=== PATIENT | female | born 1990 | race Two or more races ===

== ENCOUNTER 2024-08-07 00:35 | Observation (INO) | payer MEDICAID, SELFPAY ==
[2024-08-07] VITALS (15 sets, daily range): BP systolic 136–164; BP diastolic 88–126; PULSE 79–101; RESP 14–100; TEMP 36.4–37.4; O2SAT 95–100; BMI 24.5
--- NOTE | 2024-08-07 00:59 | XR_ITS ---
Examination: CT brain head without contrast. 2-D sagittal coronal reconstructions Date and time of exam:August 07, 2024 0231 hrs. Indications: Multiple falls today with injury to the head, head pain CTDI: vol (mGy):46 DLP: (mGycm):866 Technique: Multiple CT axial sections of the brain have been obtained, 5 mm slice thickness. Contrast has not been administered. 2-D sagittal, coronal reconstructions have been obtained Low dose protocols were performed. One or more of the following dose reduction techniques were used; automated exposure control, adjustment of the mA and/or KV according to patient size, use of iterative reconstruction technique. Findings: No significant ventricular enlargement. Intra-axial or extra-axial hemorrhage density is not seen. No mass effect or midline shift Basal cisterns are not remarkable. Fourth ventricle is midline. Cranial vault intact. Impression: Negative for acute hemorrhage, mass effect or midline shift Severe chronic pansinusitis
--- NOTE | 2024-08-07 01:00 | XR_ITS ---
Examination: CT chest, without intravenous contrast. CT abdomen, without intravenous contrast. CT pelvis, without intravenous contrast. 2-D sagittal and coronal reconstructions. 3-D reconstructions. Date and time of exam:August 07, 2024 at 0233 hrs. Indications: Injury to the chest and abdomen this week, multiple bruises CTDI vol (mgy) 5.1 DLP (MGycm)339 Technique: Multiple CT images, 3.0 mm slice thickness, obtained chest, abdomen, pelvis, with the high-resolution 64 slice scanner.. Sagittal and coronal 2-D reconstructions are obtained. 3-D reconstructions Low dose protocols were performed. One or more of the following dose reduction techniques were used; automated exposure control, adjustment of the mA and/or KV according to patient size, use of iterative reconstruction technique. Findings: Thoracic aorta pulmonary arteries intact No hemopericardium Minute left apical pneumothorax The manubrium the body the sternum thoracic vertebral bodies and ribs appear intact No liver splenic or renal laceration, no perinephric hematoma Contracted gallbladder Aorta normal size No free blood in the abdomen Negative for pneumoperitoneum No pelvic mass Urinary bladder intact Lumbar vertebral bodies sacral segments and bones of the pelvis and hips appear intact Impression: Tiny left apical pneumothorax less than 3% Thoracic aorta pulmonary arteries intact No pulmonary contusion or hemothorax No abdominal parenchymal laceration Abdominal aorta intact No free blood in the abdomen
--- NOTE | 2024-08-07 01:00 | XR_ITS ---
Examination: CT cervical spine without contrast 2-D sagittal reconstructions 2-D coronal reconstructions 3-D reconstructions. Exam date and time:August 06, 2024 0231 hrs. Indications: Multiple falls today with injury to the neck, neck pain CTDI:vol (mGy) 7.36 DLP: (mGycm) 163 Technique: Multiple 2 mm axial sections of the cervical spine have been obtained. The coronal and sagittal reconstructions have been obtained. 3-D reconstructions have been obtained. Low dose protocols were performed. One or more of the following dose reduction techniques were used; automated exposure control, adjustment of the mA and/or KV according to patient size, use of iterative reconstruction technique. Findings: Axial sections demonstrate intact base of the skull. C1 exhibit satisfactory relationship to the odontoid. No acute cervical vertebral body fracture seen. Alignment posterior spinous processes satisfactory. Impression: No acute cervical fracture.
[2024-08-07 01:26] LABS: Basophils # (Auto) 0.1 Thou/mm3 (0.0-0.2); Basophils % (Auto) 0 % (0-2.5); Eosinophils # (Auto) 0.2 Thou/mm3 (0.0-0.5); Eosinophils % (Auto) 1 % (0-10); Hematocrit 37.3 % (36.0-46.0); Hemoglobin 12.6 g/dL (12.0-16.0); Immature Granulocytes % (Auto) 1 % (0-0); Immature Granulocytes Auto 0.14 Thou/mm3 (0.00-0.00); Lymphocytes # (Auto) 1.9 Thou/mm3 (1.0-4.8); Lymphocytes % (Auto) 9 % (10-50); Mean Corpuscular HGB Conc 33.8 g/dl (31.0-37.0); Mean Corpuscular Hemoglobin 29.5 pg (25.0-35.0); Mean Corpuscular Volume 87 fL (80-100); Monocytes % (Auto) 5 % (0-12); Neutrophils # (Auto) 17.9 Thou/mm3 (1.8-7.7); Neutrophils % (Auto) 84 % (37-80); Nucleated Red Blood Cell % 0 /100 WBC (0); Platelet Count 322 Thou/mm3 (140-440); RDW Standard Deviation 43.2 fL (36.4-46.3); Red Blood Count 4.27 Miln/mm3 (4.00-5.20); White Blood Count 21.2 Thou/mm3 (3.6-11.0)
[2024-08-07 01:49] LABS: Alanine Aminotransferase 20 U/L (10-49); Albumin, Serum 4.1 gm/dL (3.5-5.0); Albumin/Globulin Ratio 1.8 (1.2-2.2); Alcohol, Blood Medical 270.4 mg/dL (0-10.0); Alkaline Phosphatase 78 U/L (46-116); Anion Gap 9 (7-16); Aspartate Amino Transferase 40 U/L (0-34); BUN/Creatinine Ratio 12 Ratio (12-20); Bilirubin,Total 0.3 mg/dL (0.3-1.2); Blood Urea Nitrogen 11 mg/dL (9-23); Calcium 8.7 mg/dL (8.3-10.6); Calcium (Corrected) 8.7 mg/dL (8.5-10.1); Carbon Dioxide 25.5 mMol/L (20.0-31.0); Chloride 110 mMol/L (98-107); Creatinine (Component) 0.9 mg/dL (0.6-1.3); Estimated Creatinine Clearance 73.4 mL/min (>60); Globulin 2.3 gm/dL (2.3-3.5); Glucose 135 mg/dL (74-106); Magnesium 2.2 mg/dL (1.6-2.6); Osmolality,Calculated 288 (275-295); Potassium 3.8 mMol/L (3.4-5.1); Sodium 144 mMol/L (136-145); Total Protein 6.4 gm/dL (5.7-8.2); eGFR > 60 See Note
[2024-08-07 01:57] LABS: Troponin I 0.077 ng/mL (0.0-0.045)
--- NOTE | 2024-08-07 02:01 | EKG_ITS ---
[facility] Test Date: 2024-08-07 Pat Name: RISHABH RIVAS Department: Room: - Gender: Female Card Room Manager: : 1990 Requested By: Yousuf Rodgers Order Number: [id number] Reading MD: Yousuf Rodgers Measurements Intervals [place] Rate: 108 P: 59 WI: 151 QRS: 16 QRSD: 74 T: 58 QT: 320 QTc: 429 Interpretive Statements SINUS TACHYCARDIA ABNORMAL RHYTHM ECG No previous ECG available for comparison /store/S0/[id number]/ecg/[id number].pdf
[2024-08-07 02:06] LABS: HCG,Qualitative Serum Negative
[2024-08-07] MEDS: ONDANSETRON INJ 2 MG/ML INJ 2 ML 4 MG IV (02:14)
[2024-08-07] MEDS: SODIUM CHLORIDE 0.9% 1000 ML 1,000 ML 999 ML IV (02:15)
--- NOTE | 2024-08-07 02:26 | PC.NURSE ---
To ct-scan via gurney.
[2024-08-07 03:01] LABS: Lactate (Lactic Acid) 1.1 mMol/L (0.4-2.0)
--- NOTE | 2024-08-07 03:06 | PD.EDFALL ---
ED Fall Injury RME/HPI General Chief Complaint: Fall Stated Complaint: SOB Time Seen by Provider: 08/07/24 01:59 Arrival date/time: 08/07/24 00:35 RME / HPI RME / HPI Narrative: This section includes all my notes and documentations, including HPI, PE, and ED course.? Yousuf Seals MD HPI: 34 year old female here to be evaluated after falling on her left side per EMS. Can't obtain any history from the patient due to intoxication. ROS: Can't obtain from the patient due to current clincal condition. Physical Exam: General:? Severely intoxicated. Eyes:? Conjunctivae and lids clear.? PERRL. EOMI. ENT:? No signs of head trauma. Neck:? Supple.? No obvious tenderness. Heart:? RRR.? Lungs:? No respiratory distress.? Moderately decreased air movement.? No significant rhonchi, wheezing, rales.?? Chest: Equivocal tenderness of the left ribcage. Abdomen:? Soft and nontender.?? Legs:? No clubbing, cyanosis, edema.? Skin:? Warm and dry.??Scattered ecchymoses, varying in size and shape. Neuro:? CN 2-12 grossly normal. No peripheral motor deficits. Musculoskeletal: All major bones and joints are tender with no limited ROM. I reviewed all diagnostic test results. At this point, diagnoses include: Left 1% Pneumothorax, Alcohol Intoxication, Elevated Troponin, Elevated D-Dimer, Tachycardia, Leukocytosis, UTI, and Ecchymoses. Treatment here included?Zofran and IVF. I discussed the case with our surgeon (Dr. Mendosa) and our hospitalist.? About the presentation and exam and diagnostics and treatments here.? And need of further care in the hospital.? Dr. Mendosa recommended discharging tomorrow AM if CXR stable. Hospitalist will accept the patient. Yousuf Seals MD Related Data Home Medications ?Medication ?Instructions ?Recorded ?Confirmed cetirizine 10 mg tablet 10 mg PO QDAY Allergies #0 tabs 09/28/13 10/09/21 yrgwkevv-bmu-Ck-FA 1 mg 1 tab PO DAILY #0 tabs 09/28/13 10/09/21 tablet budesonide-formoterol HFA 160 2 puff inhalation BID 05/23/21 10/09/21 mcg-4.5 mcg/actuation aerosol inhaler (Symbicort) fluticasone propionate 93 1 spray intranasal BID 09/17/21 10/09/21 mcg/actuation breath activated aerosol (Xhance) omega-3 fatty acids 500 mg PO QDAY 09/17/21 10/09/21 Previous Rx's ?Medication ?Instructions ?Recorded lidocaine 4 % topical patch 1 patch topical QDAY PRN pain 1 08/07/24 week #6 ea losartan 25 mg tablet 25 mg PO QDAY 30 days #30 tabs 08/07/24 acetaminophen 500 mg capsule 500 mg PO Q6H PRN pain #40 caps 08/10/24 Allergies Allergy/AdvReac Type Severity Reaction Status Date / Time aspirin Allergy Severe throat Verified 04/10/24 16:55 swells ibuprofen Allergy Severe throat Verified 04/10/24 16:55 swells Course Quality Measures none Orders Category Date Time Status Bedside COVID-19 Antigen Test NOW Care 08/07/24 02:00 Completed Bedside Influenza A&B Antigen Test NOW Care 08/07/24 02:00 Completed COVID-19 Screening Questionnaire NOW Care 08/07/24 05:02 Completed Decision to Admit X1 Care 08/07/24 05:02 Completed EKG (ED ONLY) *Do not use* NOW Care 08/07/24 02:01 Completed Saline [Insert IV] NOW Care 08/07/24 02:00 Completed Straight [In and Out Catheter] X1 Care 08/07/24 02:00 Completed Consult to General Surgery Stat Cons 08/07/24 05:[address] cervical spine wo con Stat Exams 08/07/24 01:[address] chest abdomen pelvis wo Stat Exams 08/07/24 01:[address] head/brain wo con Stat Exams 08/07/24 00:59 Completed EKG (ED Only) Stat Exams 08/07/24 02:01 Draft XR chest 1V portable Stat Exams 08/07/24 04:44 Completed Alcohol, Blood Medical Stat Lab 08/07/24 01:12 Completed BNP [B-Type Natriuretic Peptide] Stat Lab 08/07/24 02:46 Completed Blood Culture (Lab) Stat Lab 08/07/24 02:40 Completed CBC Stat Lab 02/16/25 01:12 Completed CMP [Comprehensive Metabolic Panel] Stat Lab 08/07/24 01:12 Completed CRP [C-Reactive Protein] Stat Lab 08/07/24 02:46 Completed D-Dimer Stat Lab 08/07/24 02:46 Completed Drug Screen,Urine Stat Lab 08/07/24 03:28 Completed ESR [Sed Rate (ESR)] Stat Lab 08/07/24 02:46 Completed HCG Qualitative,Urine Stat Lab 08/07/24 03:28 Completed HCG,Qualitative Serum Stat Lab 08/07/24 01:12 Completed Lactate (Lactic Acid) Stat Lab 08/07/24 02:46 Completed Magnesium Stat Lab 08/07/24 01:12 Completed Procalcitonin Stat Lab 08/07/24 02:46 Completed Troponin I Stat Lab 08/07/24 01:12 Completed UA, C/S IF [Urinalysis, C/S if Indicated] Stat Lab 08/07/24 03:28 Completed Urine Culture Stat Lab 08/07/24 03:28 Completed Ondansetron Inj [Zofran Inj] Med 08/07/24 02:00 Discontinued 4 mg IV X1 ONE Sodium Chloride 0.9% 1000 ml [Ns] 1,000 ml Med 08/07/24 02:00 Discontinued IV 999 mls/hr Vital Signs Vital signs: Vital Signs Temperature 98 F 08/07/24 01:25 Respiratory Rate 22 H 08/07/24 01:25 Blood Pressure 137/96 H 08/07/24 01:25 Pulse Oximetry (%) 97 08/07/24 01:25 Oxygen Delivery Method Room Air 08/07/24 01:25 Fall Patient data External records reviewed:: [facility] previous records Clinical information provided by:: EMS Social determinants that could affect healthcare access:: alcohol use Patient has the following chronic illnesses:: Alcohol use How is presenting disease/condition affected by chronic disease/condition?: exacerbated by Evaluation data The following diagnostics were reviewed and interpreted by me:: lab results, radiology exam(s) and EKG tracing(s) (My interpretation of the EKG is: Sinus rhythm (100 bpm) with nonspecific ST-T changes. Yousuf Seals MD) Lab and/or radiology exams considered but not ordered:: None Interpretation Summary: Left 1% Pneumothorax, Alcohol Intoxication, Elevated Troponin, Elevated D-Dimer, Tachycardia, Leukocytosis, UTI, and Ecchymoses. Medications / Prescriptions Medications or Prescriptions considered but not ordered:: None Medication administrations:: Medication Administration History Discontinued Medications Acetaminophen (Acetaminophen 325 Mg Tablet) 650 mg PO Q6H PRN PRN Reason: PAIN SCALE 1-3 (mild Stop: 09/06/24 05:19 Acetaminophen (Acetaminophen 325 Mg Tablet) 650 mg PO Q6H PRN PRN Reason: Fever >100.4 Stop: 09/06/24 05:19 Acetaminophen (Acetaminophen 500 Mg Tablet) 1,000 mg PO Q6H PRN PRN Reason: PAIN SCALE 1-3 (mild Stop: 09/06/24 05:19 Last Admin: 08/07/24 15:13 Dose: 1,000 mg Documented By: OPAL Albuterol/Ipratropium (Albuterol/Ipratropium (Duoneb) Rt Kristi 3 Ml Nebu) 3 ml INH Q6HRRT PRN PRN Reason: wheezing Stop: 09/06/24 06:59 Albuterol/Ipratropium (Albuterol/Ipratropium (Duoneb) Rt Kristi 3 Ml Nebu) 3 ml INH Q6HRRT KELSEY Stop: 09/06/24 06:59 Last Admin: 08/07/24 18:30 Dose: 3 ml Documented By: Admin: 08/07/24 12:55 Dose: 3 ml Documented By: Admin: 08/07/24 07:23 Dose: Not Given Documented By: PAULETTE Non-Admin Reason: Patient Refused Hydralazine HCl (Hydralazine Hcl 10 Mg Tablet) 10 mg PO X1 ONE Stop: 08/07/24 12:29 Last Admin: 08/07/24 12:34 Dose: 10 mg Documented By: POAL Hydralazine HCl (Hydralazine Inj 20 Mg/Ml Vial) 10 mg IV X1 ONE Stop: 08/07/24 14:59 Last Admin: 08/07/24 15:45 Dose: Not Given Documented By: OPAL Non-Admin Reason: Discontinued Sodium Chloride (Ns) 1,000 mls @ 999 mls/hr IV .Q1H1M ONE Stop: 08/07/24 03:00 Last Infusion: 08/07/24 03:16 Dose: Infused Documented By: Admin: 08/07/24 02:15 Dose: 999 mls/hr Documented By: PORFIRIO Labetalol HCl (Labetalol Inj 5 Mg/Ml Vial 20 Ml) 10 mg IVP X1 ONE Stop: 08/07/24 16:04 Last Admin: 08/07/24 16:13 Dose: 10 mg Documented By: OPAL Lidocaine (Lidocaine 5% 1 Patch) 1 patch TOP X1 ONE Stop: 08/07/24 15:08 Last Admin: 08/07/24 15:14 Dose: 1 patch Documented By: OPAL Losartan Potassium (Losartan Potassium 25 Mg Tablet) 25 mg PO X1 ONE Stop: 08/07/24 15:04 Last Admin: 08/07/24 15:14 Dose: 25 mg Documented By: OPAL Ondansetron HCl (Ondansetron Inj 2 Mg/Ml Inj 2 Ml) 4 mg IV X1 ONE; Protocol Stop: 08/07/24 02:01 Last Admin: 08/07/24 02:14 Dose: 4 mg Documented By: PORFIRIO Ondansetron HCl (Ondansetron Inj 2 Mg/Ml Inj 2 Ml) 4 mg IV Q6H PRN; Protocol PRN Reason: NAUSEA OR VOMITING Stop: 09/06/24 05:19 Pantoprazole Sodium (Pantoprazole Inj 40 Mg Vial) 40 mg IVP QDAY KELSEY Stop: 09/06/24 08:59 Last Admin: 08/07/24 09:37 Dose: 40 mg Documented By: OPAL IVF and Zofran Consultations Consultation(s) initiated? (list below): Yes Consultation #1 (Physician, Specialty, Details): I discussed the case with our surgeon (Dr. Mendosa) and our hospitalist.? About the presentation and exam and diagnostics and treatments here.? And need of further care in the hospital.? Dr. Mendosa recommended discharging tomorrow AM if CXR stable. Hospitalist will accept the patient. Diagnosis Fall Differential Diagnosis: syncope, dislocation of shoulder region, compression fracture, concussion with loss of consciousness and concussion without loss of consciousness Most likely diagnosis given after review of the tests above:: Left 1% Pneumothorax, Alcohol Intoxication, Elevated Troponin, Elevated D-Dimer, Tachycardia, Leukocytosis, UTI, and Ecchymoses. Admission Indicated Admission indicated?: indicated Explain why admission is indicated or not indicated:: Left 1% Pneumothorax, Alcohol Intoxication, Elevated Troponin, Elevated D-Dimer, Tachycardia, Leukocytosis, UTI, and Ecchymoses. Admission Request Was there a request for admission?: Yes Admission Attestation Admission request attestation: Discussed case with Hospitalist service regarding admission. Discussed patients ED course, exam findings, labs, and radiology results. The Hospitalist [agrees] to accept the patient for admission. Disposition Plan Disposition Plan: Admit Discharge Plan Plan Patient Disposition: Other Care w/in Hosp ([facility]) Patient condition on transfer: Stable Problem List Clinical Impression: Pneumothorax, left, Alcohol intoxication Patient/Caregiver Discharge Instructions Discharge Activity: resume usual activities
[2024-08-07 03:27] LABS: Sed Rate (ESR) 4 mm/hr (0-20)
[2024-08-07 03:31] LABS: B-Type Natriuretic Peptide 20 pg/mL (0-100); C-Reactive Protein < 0.4 mg/dL (0.0-0.9)
[2024-08-07 03:39] LABS: Procalcitonin 0.07 ng/ml (0.0-0.49)
[2024-08-07 03:47] LABS: Collection Type, Urine Clean Catch; RBC,Urine 0 /hpf (0-3)
[2024-08-07 04:11] LABS: Bilirubin,Urine Negative (Negative); Blood,Urine Negative (Negative); Clarity,Urine Turbid (Clear/Hazy); Color,Urine Lt-Yellow (Lt Yel-Yel); Glucose, Urine Negative (Negative); Hyaline Casts,Urine < 1 /hpf (0-1); Ketones,Urine Trace (Negative); Leukocyte Esterase,Urine Negative (Negative); Nitrite,Urine Positive (Negative); Protein,Urine Trace (Neg - Trace); Specific Gravity,Urine 1.017 (1.001-1.035); Squamous Epithelial Cell,Urine < 1 /hpf (0-5); Urobilinogen,Urine Negative mg/dL (0.0-1.0); WBC,Urine 6 /hpf (0-5)
[2024-08-07 04:13] LABS: Culture Indicated,Urine Yes
[2024-08-07 04:15] LABS: HCG Qualitative,Urine Negative
[2024-08-07 04:17] LABS: Amphetamine/Methamp Scrn,U Negative (Negative); Barbiturate Screen,Urine Negative (Negative); Benzodiazepines Screen,Urine Negative (Negative); Benzoylecgonine Screen, Ur Negative (Negative); Fentanyl Screen,Urine Negative (Negative); Opiate Screen,Urine Negative (Negative); THC Screen,Urine Positive (Negative)
--- NOTE | 2024-08-07 04:19 | PC.NURSE ---
Pt also c/o hitting head on floor small bump to back rt occipital and lt side of head noted. Denies LOC.
[2024-08-07 04:29] LABS: D-Dimer 987 ng/mL (<600)
--- NOTE | 2024-08-07 04:44 | XR_ITS ---
Examination: AP chest single view Technique one AP portable upright chest single view Exam date and time: August 07, 2024 0448 hrs. Indications: Shortness of breath today, multiple bruises this week post injury, tiny left apical pneumothorax on CT chest study Findings: No pneumothorax noted Normal heart size The lungs are clear The osseous structures are intact Impression: No pneumothorax depicted
--- NOTE | 2024-08-07 04:44 | PC.NURSE ---
pt moved to RM #5 via sheree.
--- NOTE | 2024-08-07 05:24 | ESHP_ITS ---
Documentation for date of: 08/07/24 [facility] History of Present Illness History of present illness: This is a 34-year-old female PMHx of well-controlled asthma, presenting after ground-level fall. History is somewhat vague, but states she was partying with her cousins at their house. Admitted to drinking lots of alcohol, unable to tell me how many drinks, states she does not remember. Apparently they were dancing and she slipped over the carpet, and landed on the floor facing down. States her chest took most of the impact but she also hit her forehead on the carpet. She remembers the entire event. Denies losing consciousness, feeling dizzy or lightheaded prior to falling. She was able to get up and walk after the incident but was having slightly difficulty breathing. Admits to drinking alcohol occasionally, usually on weekends. States he is usually not a heavy drinker. Denies previous alcohol withdrawal symptoms including seizures. Denies domestic abuse or violence. Denies tobacco or illicit drug use currently or in the past. Has mild headache related to hangover. Denies focal neurologic deficit, visual changes, auditory changes, hallucination, abnormal sensation in her extremities, muscle weakness, seizure-like activities, fever, chills, chest pain, shortness of breath, cough, palpitations, abdominal pain, N/V/D/C, dysuria, urinary frequency or urgency. ED COURSE: Afebrile, HR 83, BP 137/96, RR 22, satting 97% on room air. Troponin 0.077, AST 40, GLUCOSE 135, hCG negative, otherwise CMP WNL. WBC 22.1 with left shift, remainder CBC WNL. D-dimer 987. UA positive for nitrite and WBC 6. Alcohol 270, positive for marijuana. EKG shows sinus rhythm acute without ST changes. Prelim CT head, CT cervical spine, CT CAP were negative for ethmoid/maxillary sinusitis. CXR showed 5% pneumothorax. Dr. Mendosa was consulted by ED physician, and recommended admission for observation. PMHx: , asthma PSHx: Bilateral tubal ligation, septoplasty MEDS: SYMBICORT as needed. ALLERGIES: IBUPROFEN, ASPIRIN, both anaphylaxis. FHx: No relevant SH: , has 3 children, lives at home with . Occasional alcohol use. Denies drug or tobacco use. Exam Vital Signs Temp Resp BP Pulse Ox O2 Del Method 99.3 F 18 136/88 H 96 Room Air 08/07/24 03:35 08/07/24 03:35 08/07/24 03:35 08/07/24 03:35 08/07/24 03:35 Narrative Exam GENERAL * Normal-appearing adult female, no apparent distress. * CIWA 0 HEENT * NCAT.?PEREZ. Oral mucosa is moist. Patent Nares NECK * Supple, nontender, no thyromegaly, no meningismus, no JVD, no step offs CHEST * RRR, no m/g/r * CTAB, no w/r/r. Symmetrical chest rise. No intercostal subcostal retraction * Atraumatic, nontender, no crepitus, symmetrical expansion. ABDOMEN * Soft, flat, nontender. No guarding/rebound tenderness/masses. * Bowel sounds presents EXTREMITIES * Nontender, no cyanosis, no edema * No edema/cyanosis.? SKIN * Warm and dry, no jaundice/rashes. * Multiple diffuse bruises and lesions in all extremities. NEUROMUSCULAR * No lumbar or midline, no CVA, no paraspinal muscle spasm or tenderness. * Moves all 4 extremities well, with full ROM and good CSM. * REID x4, CN II-XII grossly intact. * No focal neurologic deficits. PSYCHIATRY * Normal mood and affect, cooperative, no SI or HI or hallucinations. Results: Labs 08/07/24 01:12 08/07/24 01:12 Labs: Short CBC 08/07/24 Range/Units 01:12 WBC 21.2 H (3.6-11.0) Thou/mm3 Hgb 12.6 (12.0-16.0) g/dL Hct 37.3 (36.0-46.0) % Plt Count 322 (140-440) Thou/mm3 BMP 08/07/24 01:12 Sodium 144 Potassium 3.8 Chloride 110 H Carbon Dioxide 25.5 BUN 11 Creatinine 0.9 Glucose 135 H Calcium 8.7 Cardiac Enzymes 08/07/24 Range/Units 01:12 Troponin I 0.077 H* (0.0-0.045) ng/mL Liver Function 08/07/24 Range/Units 01:12 Total Bilirubin 0.3 (0.3-1.2) mg/dL AST 40 H (0-34) U/L ALT 20 (10-49) U/L Alkaline Phosphatase 78 (46-116) U/L Albumin 4.1 (3.5-5.0) gm/dL Urine 08/07/24 Range/Units 03:28 Urine Color Lt-Yellow (Lt Yel-Yel) Urine Clarity Turbid A (Clear/Hazy) Urine pH 6.0 (5.0-7.0) Ur Specific [place] 1.017 (1.001-1.035) Urine Protein Trace (Neg - Trace) Urine Glucose (UA) Negative (Negative) Quality Measures Quality Measures VTE prophylaxis Medications Home Medications and Allergies Home Medications ?Medication ?Instructions ?Recorded ?Confirmed ?Type cetirizine 10 mg tablet 10 mg PO QDAY Allergies #0 t abs 09/28/13 10/09/21 History ptjkrvog-luw-Cb-FA 1 mg 1 tab PO DAILY #0 tab s 09/28/13 10/09/21 History tablet budesonide-formoterol HFA 160 2 puff inhalation BID 10/09/21 History mcg-4.5 mcg/actuation aerosol inhaler (Symbicort) fluticasone propionate 93 1 spray intranasal BID 09/1710/09/21 History mcg/actuation breath activated aerosol (Xhance) omega-3 fatty acids 500 mg PO QDAY 09/17/2109/21 History Allergies Allergy/AdvReac Type Severity Reaction Status Date / Time aspirin Allergy Severe throat Verified 04/10/24 16:55 swells ibuprofen Allergy Severe throat Verified 04/10/24 16:55 swells Visit Medications Discontinued Medications Sodium Chloride (Ns) 1,000 mls @ 999 mls/hr IV .Q1H1M ONE Stop: 08/07/24 03:00 Last Infusion: 08/07/24 03:15 Dose: 999 mls/hr Ondansetron HCl (Ondansetron Inj 2 Mg/Ml Inj 2 Ml) 4 mg IV X1 ONE; Protocol Stop: 08/07/24 02:01 Last Admin: 08/07/24 02:14 Dose: 4 mg Assessment & Plan Plan In summary: 34-year-old female, , with PMHx of asthma, admitted under observation for 5% pneumothorax in settings of alcohol intoxication and ground- level fall. Pneumothorax Alcohol intoxication Asthma, likely mild persistent Presenting with shortness of breath after GLF secondary to intoxication. Chest x-ray showed 5% pneumothorax. Prelim imaging including CT CAP, CT cervical spine, and head CT were negative for acute pathology. States she drinks alcohol occasionally, on weekends. Denies other substance use disorder. Tox screen positive for alcohol 270, and marijuana. Denies previous alcohol withdrawal symptoms, including seizures or hallucination. Exam clear and symmetrical bilaterally, no chest trauma. CIWA 0. Currently on room air. Satting 99%. Dr Mendosa recommended observation, discharge after 24 hours if PTX not expanding. ? Admit tele ? Continue 100% oxygen NC ? DuoNebs q.6h. ? Repeat chest x-ray ? Seizure precaution NSTEMI type II Elevated D-dimer Tachycardia Troponin 0.077, likely demand ischemia. EKG sinus tachycardia without acute ST changes. D-dimer 987, likely secondary to NSTEMI and trauma. Wells scores 1.5 and 0, indicate low risk for PE or DVT, respectively. Tachycardia likely reactive or 2/2 alcohol withdrawal. ? Trending troponin Leukocytosis WBC 21.2, clear reactive. Afebrile. ? Daily CBC Asymptomatic pyuria Positive for nitrite and WBC. She is asymptomatic. ? No indication for treatment. Skin lesions/abrasions On exam, she had multiple nontender, bruises and skin lesions involving all extremities. History slightly vague, states lesions are new, she was playing a game with her cousins, refused to corroborate additional detail. Denies domestic violence or abuse. ? No concern for skeletal fracture ? No need for intervention at this time Sinusitis States she has chronic sinusitis. S/p septoplasty. Prelim CT showed sinusitis of the mastoid and ethmoid sinuses. ? No indication for immediate treatment Health maintenance Diet: NPO GI prophylaxis: PROTONIX DVT prophylaxis: SCD Antibiotics: Not indicated CODE STATUS: Full code Disposition: Observation for pneumothorax. Patient case was discussed with attending, Blayne Fulton MD. Maribel Morales DO PGYI Attending Provider Attestation/Addendum 34-year-old female with asthma, perennial allergies was admitted following a fall. The patient said that she hit her chest on the left side and face on the carpet surface. She was in a alliance party and drinking alcoholic beverage. Per report. The patient sustained a pneumothorax. She has a reactive leukocytosis ER physician notified general surgeon Dr. Mendosa who wants the patient to be admitted for observation possible discharge if her repeat x-ray are stable. Patient was seen and evaluated in the ER. She has no hypoxia. Blood pressure is stable. She answers questions appropriately. She says she takes cetirizine and uses Symbicort at home
--- NOTE | 2024-08-07 05:37 | PC.NURSE ---
Dr. Fulton in room seeing pt.
[2024-08-07 07:38] LABS: Troponin I 0.071 ng/mL (0.0-0.045)
--- NOTE | 2024-08-07 08:18 | PC.NURSE ---
PT NOTED TO HAVE BRUISING ALL OVER BOTH ARMS. REPORTS 12/29 PIAN, MEDICATED WITH PRN (SEE MAR). WILL TRANSFER PT UP TO FLOOR ON TELE.
[2024-08-07] MEDS: PANTOPRAZOLE INJ 40 MG VIAL IVP (09:37)
--- NOTE | 2024-08-07 11:00 | XR_ITS ---
Examination: AP chest single view Technique: AP sitting portable chest single view Exam date and time: May 07, 2025 1059 hrs. Comparison August 07, 2024 0448 hrs. Indications: History tiny pneumothorax on CT chest study August 07, 2024 0233 hrs. Findings: Normal heart size no pneumothorax No pneumonia or pulmonary edema Impression: No pneumothorax
[2024-08-07] MEDS: hydrALAZINE HCL 10 MG TABLET PO (12:34)
[2024-08-07] MEDS: ALBUTEROL/IPRATROPIUM (Duoneb) RT SOL 3 ML NEBU INH ×2 (12:55→18:30)
[2024-08-07 13:19] LABS: Troponin I 0.061 ng/mL (0.0-0.045)
--- NOTE | 2024-08-07 13:21 | ESDS_ITS ---
<Statement entered by Yamile Goode MD - 08/18/24 08:02> I reviewed above note and agree with findings and plans. I have also personally examined the patient with medicine team and went over assessment and plan with medical team including international trade compliance manager and resident physician. <Statement entered by Josue Davis MD - 08/07/24 13:38> Patient was examined with the team including attending physician. Note reviewed, I agree with the discharge plan as documented. - Josue Davis M.D. PGY2 Planned Discharge Date 08/07/24 DS: Providers Provider Date of admission: 08/07/24 05:20 Primary care physician: David Corrales MD Admitting Provider: Blayne Fulton MD Attending Provider on Admission: Blayne Fulton MD Consults: 08/07/24 05:01 Consult to General Surgery Stat Comment: pneumothorax Consulting Provider: Coretta Mendosa Attending Provider on DC: Yamile Goode MD Discharging Provider: Michelle Mari MD DS: Diagnosis Problem List Completed Was Problem List Reviewed/Reconciled?: Yes Hospital Course Hospital Course Hospital course: The patient is a 34-year-old female with a past medical history of asthma who presented to the ED on 08/07/2024 after ground-level fall. Per the patient's, she had been partying with her cousins and roughhousing when she stepped over carpet and landed on the floor patient down, hitting her chest and forehead. She denies any loss of consciousness, lightheadedness or dizziness prior to falling she was able to get up and walk with any incidents, except for slight difficulty breathing. Due to this, the patient presented to the ED. In the ED, the patient was hemodynamically stable. Labs were significant for leukocytosis and elevated troponin. UA was positive for alcohol and marijuana. Chest x-ray and chest CT were done, initially showing right apical pneumothorax of less than 3% the patient was admitted for observation. The patient also had multiple bruises on her body, which she attributes to general roughhousing with her cousins and nephews, denied any form of violence or unsafe home conditions. Today, the patient is clinically stable, repeat chest x-ray was done which shows no pneumothorax. Troponins have been downtrending. Blood pressure has remained elevated, the patient reports that she has had diagnosis of hypertension was not been on medications. She is medically cleared for discharge. She is recommended to follow-up with the PCP within 1 week of discharge and check her blood pressure daily, losartan 25 mg been added for control. #Pneumothorax #Alcohol intoxication #Elevated troponin levels #Type II NSTEMI Discharge instructions: Follow up with your PCP within 1 week of discharge Use a lidocaine patch above your rib for pain, as needed Avoid alcohol intake Take Losartan 25mg daily for elevated BP Check your blood pressure twice daily Return to the ED if your symptoms worsen Case was discussed with Dr Davis PGY-2 and attending physician, Dr Russel Mari MD PGY-1 Disclaimer: This note was dictated by speech recognition. Minor errors in search engine optimizer may be present due to voice recognition software. Status at Discharge Overall status at discharge: patient is progressing back to baseline Time Spent with Patient Time attestation: Total time spent providing and/or coordinating discharge services: Time spent: Greater than 30 minutes Exam Vital Signs Temp Pulse Resp BP Pulse Ox O2 Del Method 98.1 F 95 16 163/126 H 100 Room Air 08/07/24 08:40 08/07/24 13:00 08/07/24 13:00 08/07/24 12:34 08/07/24 13:00 08/07/24 08:40 Narrative Exam GENERAL: AAOX3 NEURO: ELECTROTYPE FINISHER grossly intact, moves extremities x4 HEENT: Moist mucosa. Eyes open, symmetrical, & clear CARDIO: No chest pain on palpation. Heart RRR, no obvious murmurs PULM: No noted coughing/dyspnea. Lungs CTA B/L GI: Abdomen soft, nondistended, no pain on palpation. BSx4 URO/SCAFFOLD BUILDER:: No further abnormalities noted. SKIN/MSK/EXT: Multiple bruises and abrasions seen Discharge Plan Plan Patient Disposition: HOME (Self Care) Prescriptions/Referrals Prescriptions/Med Rec: New lidocaine 4 % adhesive patch,medicated 1 patch topical QDAY PRN (Reason: pain) 7 Days Qty: 6 0RF losartan 25 mg tablet 25 mg PO QDAY 30 Days Qty: 30 0RF Continued cetirizine 10 mg Tablet 10 mg PO QDAY Qty: 0 gxbinhti-tih-Md-FA 1 mg Tablet 1 tab PO DAILY Qty: 0 budesonide-formoterol [Symbicort] 160-4.5 mcg/actuation Hfa Aerosol Inhaler 2 puff INHALATION BID Xhance 93 mcg/actuation Aerosol Breath Activated 1 spray INTRANASAL BID omega-3 fatty acids Capsule 500 mg PO QDAY Referrals: David Corrales MD [Primary Care Provider] - Patient/Caregiver Discharge Instructions Other Discharge Activity Instructions:: Follow up with your PCP within 1 week of discharge Use a lidocaine patch above your rib for pain, as needed Avoid alcohol intake Take Losartan 25mg daily for elevated BP Check your blood pressure twice daily Return to the ED if your symptoms worsen Education Materials: ED Alcohol Intoxication, ED Hypertension, New (Begin Treatment) Print Language: Faroese Stand Alone Forms: Consuelo Award Info., Patient Portal Info Letter, Work/Release Restrictions Discharge Order Discharge Orders: Discharge (Routine); Ordered 08/07/24 Ordered By: Michelle Mari Quality Discharge Quality Measures VTE prophylaxis
--- NOTE | 2024-08-07 13:40 | PC.NURSE ---
At approx 1200, was notified of pts elevated BP 161/105, retook and still 163/126, was given order for Hydralazine 10mg PO X1 now, given at 1235, rechecked BP at 1335, 159/113, pt states no pain but some heaviness in chest area, made aware, was advised to monitor for another hour and recheck BP and reassess. Will carry out new orders
[2024-08-07] MEDS: ACETAMINOPHEN 500 MG TABLET 1000 MG PO (15:13)
[2024-08-07] MEDS: LOSARTAN POTASSIUM 25 MG TABLET PO (15:14)
[2024-08-07] MEDS: LIDOCAINE 5% 1 PATCH TOP (15:14)
[2024-08-07] MEDS: LABETALOL INJ 5 MG/ML VIAL 20 ML 10 MG IVP (16:13)
--- NOTE | 2024-08-07 19:30 | PC.NURSE ---
Discharge order written. Patient discharged to front entrance via wheelchair to private care with spouse. Patient alert and oriented. No signs of distress, no complaints of pain. Vitals stable. Belongings with patient. Discharge instructions discussed, understood and signed by patient. Patient stable on discharge.
== END 2024-08-07 19:30 | disposition home or self-care (01) ==
LOC: SERX 05:02 → S2NX 11:40 → SERHOLD 08-09 08:33
PROVIDERS: Admitting Provider Internal Medicine; Emergency Provider Emergency Medicine; PCP Family Medicine; Visit Provider Internal Medicine
DX: I21.A1 Myocardial infarction type 2 (principal); J93.9 Pneumothorax, unspecified; I10 Essential (primary) hypertension; J32.9 Chronic sinusitis, unspecified; J45.909 Unspecified asthma, uncomplicated; F10.129 Alcohol abuse with intoxication, unspecified; Z01.810 Encounter for preprocedural cardiovascular examination; F12.929 Cannabis use, unspecified with intoxication, unspecified; R07.81 Pleurodynia; T14.8XXA Other injury of unspecified body region, initial encounter; W01.0XXA Fall on same level from slipping, tripping and stumbling without subsequent striking against object, initial encounter
CPT/HCPCS: 36415; 70450; 71045; 71250; 72125; 74176; 80053; 80307; 80320; 81001; 81025; 83605; 83735; 83880; 84145; 84484; 84703; 85025; 85379; 85652; 86140; 87040; 87077; 87086; 87186; 87400; 87811; 93005; 94640; 96360; 99285; A9270; G0378; J2405; J2470; J3490; J7030; Z7610; G0480; J1920

== ENCOUNTER 2024-08-10 20:17 | Emergency (ER) | payer MEDICAID, SELFPAY ==
--- NOTE | 2024-08-10 20:23 | EKG_ITS ---
[facility] Test Date: 2024-08-10 Pat Name: RISHABH RIVAS Department: Room: - Gender: Female [employer] Administrator: : 1990 Requested By: Peña Kitchen Order Number: [id number] Reading MD: Peña Kitchen Measurements Intervals Ollie Rate: 86 P: 63 CO: 162 QRS: 21 QRSD: 76 T: 56 QT: 335 QTc: 401 Interpretive Statements SINUS RHYTHM POSSIBLE RIGHT VENTRICULAR CONDUCTION DELAY [RSR (QR) IN V1/V2] SEPTAL MYOCARDIAL INFARCTION , OF INDETERMINATE AGE [40+ ms Q WAVE IN V1/V2] Compared to ECG 08/07/2024 04:32:46 Myocardial infarct finding now present Sinus tachycardia no longer present /store/S0/[id number]/ecg/[id number].pdf
[2024-08-10 20:32] VITALS: BP 172/117; BP 182/118; PULSE 88; RESP 20; TEMP 36.7; O2SAT 99; BMI 24.5
--- NOTE | 2024-08-10 20:48 | PD.EDRME ---
Rapid Medical Screening Exam FORMERLY [facility], [facility]–1983 Arrival date/time: 08/10/24 20:17 34F with history of HTN and asthma presents to ED with worsening L chest/back pain. Patient was recently discharged with small pneumothorax. Chief Complaint: Shortness of Breath/Dyspnea Vital signs: Vital Signs Temperature 98.1 F 08/10/24 20:32 Pulse Rate 88 08/10/24 20:32 Respiratory Rate 20 08/10/24 20:32 Blood Pressure 172/117 H 08/10/24 20:32 Pulse Oximetry (%) 99 08/10/24 20:32 Oxygen Delivery Method Room Air 08/10/24 20:32
--- NOTE | 2024-08-10 20:49 | XR_ITS ---
Examination: PA lateral chest 2 views Technique: Upright PA lateral chest 2 views Exam date and time: August 10, 2024 2117 hrs. Indications: Worsening chest pain back pain, tiny left apical pneumothorax on CT chest August 07, 2024 Findings: Normal heart size No pneumonia or pulmonary edema No current pneumothorax Impression: No pneumothorax identified
[2024-08-10 21:40] LABS: Basophils # (Auto) 0.1 Thou/mm3 (0.0-0.2); Basophils % (Auto) 0 % (0-2.5); Eosinophils # (Auto) 0.5 Thou/mm3 (0.0-0.5); Eosinophils % (Auto) 4 % (0-10); Hematocrit 36.3 % (36.0-46.0); Hemoglobin 12.2 g/dL (12.0-16.0); Immature Granulocytes % (Auto) 0 % (0-0); Immature Granulocytes Auto 0.05 Thou/mm3 (0.00-0.00); Lymphocytes # (Auto) 2.5 Thou/mm3 (1.0-4.8); Lymphocytes % (Auto) 21 % (10-50); Mean Corpuscular HGB Conc 33.6 g/dl (31.0-37.0); Mean Corpuscular Hemoglobin 29.6 pg (25.0-35.0); Mean Corpuscular Volume 88 fL (80-100); Monocytes # (Auto) 0.8 Thou/mm3 (0.0-0.8); Monocytes % (Auto) 7 % (0-12); Neutrophils # (Auto) 7.9 Thou/mm3 (1.8-7.7); Neutrophils % (Auto) 67 % (37-80); Nucleated Red Blood Cell % 0 /100 WBC (0); Platelet Count 326 Thou/mm3 (140-440); RDW Standard Deviation 42.5 fL (36.4-46.3); Red Blood Count 4.12 Miln/mm3 (4.00-5.20); White Blood Count 11.8 Thou/mm3 (3.6-11.0)
[2024-08-10 22:00] LABS: Alanine Aminotransferase 20 U/L (10-49); Albumin, Serum 4.3 gm/dL (3.5-5.0); Anion Gap 9 (7-16); Aspartate Amino Transferase 16 U/L (0-34); BUN/Creatinine Ratio 24 Ratio (12-20); Bilirubin,Total 0.3 mg/dL (0.3-1.2); Blood Urea Nitrogen 17 mg/dL (9-23); Chloride 104 mMol/L (98-107); Creatinine (Component) 0.7 mg/dL (0.6-1.3); Estimated Creatinine Clearance 94.3 mL/min (>60); Glucose 104 mg/dL (74-106); Osmolality,Calculated 282 (275-295); Sodium 141 mMol/L (136-145); Total Protein 6.9 gm/dL (5.7-8.2); Troponin I 0.031 ng/mL (0.0-0.045); eGFR > 60 See Note
[2024-08-10 22:01] LABS: Albumin/Globulin Ratio 1.7 (1.2-2.2); Alcohol, Blood Medical < 3.0 mg/dL (0-10.0); Alkaline Phosphatase 88 U/L (46-116); Globulin 2.6 gm/dL (2.3-3.5)
--- NOTE | 2024-08-10 22:43 | PD.EDSOB ---
ED SOB =RME/HPI General Chief Complaint: Shortness of Breath/Dyspnea Stated Complaint: Pneumo on Thursday/Lots of pain today/SOB Time Seen by Provider: 08/10/24 22:41 Arrival date/time: 08/10/24 20:17 RME / HPI RME / HPI Narrative: 08/10/24 20:17 34F with history of HTN and asthma presents to ED with worsening L chest/back pain. Patient was recently discharged with small pneumothorax. -------- Dr. Akhtar?s Main ED Evaluation: 34yo female with a history of HTN, asthma presents to the ED for a chief complaint of left rib pain. Patient states she was seen and admitted here on Thursday due to having a small pneumothorax. She states she was discharged 2 days ago and has continued to have left rib pain. She denies taking any pain medications at home. She denies any shortness of breath or any other associated symptoms. Related Data Home Medications ?Medication ?Instructions ?Recorded ?Confirmed cetirizine 10 mg tablet 10 mg PO QDAY Allergies #0 tabs 09/28/13 10/09/21 xvwthldz-sdb-Qg-FA 1 mg 1 tab PO DAILY #0 tabs 09/28/13 10/09/21 tablet budesonide-formoterol HFA 160 2 puff inhalation BID 05/23/21 10/09/21 mcg-4.5 mcg/actuation aerosol inhaler (Symbicort) fluticasone propionate 93 1 spray intranasal BID 09/17/21 10/09/21 mcg/actuation breath activated aerosol (Xhance) omega-3 fatty acids 500 mg PO QDAY 09/17/21 10/09/21 Previous Rx's ?Medication ?Instructions ?Recorded lidocaine 4 % topical patch 1 patch topical QDAY PRN pain 1 08/07/24 week #6 ea losartan 25 mg tablet 25 mg PO QDAY 30 days #30 tabs 08/07/24 acetaminophen 500 mg capsule 500 mg PO Q6H PRN pain #40 caps 08/10/24 Allergies Allergy/AdvReac Type Severity Reaction Status Date / Time aspirin Allergy Severe throat Verified 04/10/24 16:55 [email or web address] ibuprofen Allergy Severe throat Verified 04/10/24 16:55 [email or web address] Review of Systems Review of Systems Systems Reviewed: All systems reviewed, normal except as documented Past Medical History Past Medical History NEUROLOGIC: Negative Neurological Disorders or Seizures CARDIAC: Negative Cardiac Disorders, Congestive Heart Failure, Edema, Cellulitis or Varicose Veins RESPIRATORY: Positive Asthma (takes medication); Negative Chronic Obstructive Pulmonary Disease (COPD), Tuberculosis, Pulmonary Embolism or Sleep Apnea GASTROINTESTINAL: Negative Gastrointestinal Disorders, Hepatitis or Colorectal Cancer GENITOURINARY: Negative Genitourinary Disorders, Renal Disease or Prostate Cancer REPRODUCTIVE: Positive Previous Pregnancies (X5); Negative Breast Cancer, Endometriosis, Pelvic Inflammatory Disease, Testicular Cancer or Uterine Prolapse MUSCULOSKELETAL: Negative Musculoskeletal Disorders or Bone Cancer ENDOCRINE: Negative Endocrine Disorders, Diabetes Mellitus Type 1 or Diabetes Mellitus Type 2 HEMATOLOGIC: Negative Blood Disorders OTHER HISTORY: Positive Chicken Pox (CHILD (UNSURE OF AGE)); Negative Hospitalization, Autoimmune Disease, Down Syndrome, Developmental Delay, Shingles, Falls, Blood Transfusions, Blood Transfusion Reaction, Anesthesia Reactions, Organ Transplant, Chemotherapy, Radiation Therapy, Hyperbaric Therapy, MRSA, VRSA, Vancomycin-Resistant Enterococci, Human Immunodeficiency Virus (HIV), Measles, Mumps, Rubella (Australian Measles), Pertussis, Clostridium Difficile, Cancer, Breast Cancer, Cervical Cancer, Colorectal Cancer, Lung Cancer, Ovarian Cancer, Prostate Cancer or Testicular Cancer Family History FAMILY HISTORY: Positive Family Respiratory Disorders (FATHER-COPD) and Family Surgery (SISTER,FATHER); Negative Family Psychiatric Problems, Family Cardiac Disorders, Family Gastrointestinal Problems, Family Cancer or Family Anesthesia Reaction Surgical History SURGICAL: Positive Nose Surgery (2017 NASAL POLYPS); Negative Cardiac Surgery, Pacemaker, Endocrine Surgery, Abdominal Surgery, Nephrectomy, Joint Replacement, Neurologic Surgery, Mastectomy, Section or Organ Transplant Social History SMOKING STATUS: Former smoker ED Exam Narrative Physical exam: GENERAL APPEARANCE: alert and oriented x 4, well-developed, well-nourished, no acute distress VITALS: All vitals were reviewed and the pulse ox is 99% on room air, which is normal according to my interpretation. HEENT: Normocephalic, atraumatic; pupils equal, round, reactive to light; EOMI; mucous membranes pink, moist; oropharynx clear NECK: Supple LUNGS: CTABL; no wheezes, no rales, no rhonchi HEART: Regular rate, regular rhythm; normal S1, S2; no murmurs ABDOMEN: non distended; normal BS; soft, no tenderness, no guarding, no rebound; no masses, no organomegaly, no hernia BACK: no CVA tenderness EXTREMITIES: atraumatic; no edema NEUROLOGIC: awake; alert and oriented x4; cranial nerves II-XII grossly intact; no focal sensory or motor deficits PSYCHIATRIC: appropriate mood and affect SKIN: warm, dry, normal color; no rashes Course Course Course Narrative: CXR is ordered for determining the etiology of rib pain. Quality Measures none Orders Category Date Time Status EKG (ED ONLY) *Do not use* NOW Care 08/10/24 20:23 Completed EKG (ED Only) Stat Exams 08/10/24 20:23 Ordered XR chest 2V Stat Exams 08/10/24 20:49 Completed Alcohol, Blood Medical Stat Lab 08/10/24 21:16 Completed CBC Stat Lab 08/10/24 21:16 Completed Comprehensive Metabolic Panel Stat Lab 08/10/24 21:16 Completed Troponin I Stat Lab 08/10/24 21:16 Completed Vital Signs Vital signs: Vital Signs Temperature 98.1 F 08/10/24 20:32 Pulse Rate 88 08/10/24 20:32 Respiratory Rate 20 08/10/24 20:32 Blood Pressure 172/117 H 08/10/24 20:32 Pulse Oximetry (%) 99 08/10/24 20:32 Oxygen Delivery Method Room Air 08/10/24 20:32 Shortness of Breath / Dyspnea MDM Narrative MDM Narrative:: Scribe Attestation: 08/10/24 - Goldie Doe am scribing for and in the presence of Dr. Akhtar. Patient data External records reviewed:: [facility] previous records (Per chart review, patient was admitted here on 08/07/24 for left pneumothorax and alcohol intoxication.) Clinical information provided by:: patient Social determinants that could affect healthcare access:: none Patient has the following chronic illnesses:: HTN, asthma How is presenting disease/condition affected by chronic disease/condition?: uneffected by Evaluation data The following diagnostics were reviewed and interpreted by me:: lab results, radiology exam(s) and EKG tracing(s) Lab and/or radiology exams considered but not ordered:: none Interpretation Summary: WBC count is 11.8, CMP is normal, troponin is normal, Blood Alcohol is negative, according to my interpretation. EKG done at 2035, NSR, rate of 86, normal axis, no ectopy, no acute ischemia, according to my interpretation. -------- [facility] Report Signed Patient: RISHABH RIVAS Med. Record#: [id number] Birthdate: 1990 Age/Sex: 34 / F [facility] Attending Dr: Ordering Physician: Peña Kitchen PA-C Date of Service: 08/10/24 Procedure(s): XR chest 2V Accession Number(s): [id number] cc: Vicente De La Fuente MD; Peña Kitchen PA-C~ Examination: PA lateral chest 2 views Technique: Upright PA lateral chest 2 views Exam date and time: August 10, 2024 2117 hrs. Indications: Worsening chest pain back pain, tiny left apical pneumothorax on CT chest August 07, 2024 Findings: Normal heart size No pneumonia or pulmonary edema No current pneumothorax Impression: No pneumothorax identified Dictated By: Vicente De La Fuente MD Signed By: <Electronically signed by Vicente De La Fuente MD in OV> 08/10/242127 Medications / Prescriptions Medications or Prescriptions considered but not ordered:: none Medication administrations:: see above, if any Consultations Consultation(s) initiated? (list below): No Diagnosis Shortness of Breath Differential Diagnosis: other (rib strain, rib fracture, pneumothorax, contusion) Most likely diagnosis given after review of the tests above:: see below Admission Indicated Admission indicated?: not indicated Explain why admission is indicated or not indicated:: No criteria for admission. Admission Request Was there a request for admission?: No Disposition Plan Disposition Plan: Discharge Discharge Attestation Discharge Attestation: The patient and all family members were given an opportunity to ask questions and understood the discharge instructions. Discharge instructions specifically effects, indications for sooner follow up or return to the emergency department, and the expected course of current diagnosis. Patient condition: Stable Discharge Plan Plan Patient Disposition: HOME (Self Care) Disposition Comment: Stable for discharge Patient condition on transfer: Stable Prescriptions/Referrals Prescriptions/Med Rec: New acetaminophen 500 mg capsule 500 mg PO Q6H PRN (Reason: pain) Qty: 40 0RF No Action cetirizine 10 mg Tablet 10 mg PO QDAY Qty: 0 bqriiriw-yea-Wo-FA 1 mg Tablet 1 tab PO DAILY Qty: 0 budesonide-formoterol [Symbicort] 160-4.5 mcg/actuation Hfa Aerosol Inhaler 2 puff INHALATION BID Xhance 93 mcg/actuation Aerosol Breath Activated 1 spray INTRANASAL BID omega-3 fatty acids Capsule 500 mg PO QDAY lidocaine 4 % adhesive patch,medicated 1 patch topical QDAY PRN (Reason: pain) 7 Days Qty: 6 0RF losartan 25 mg tablet 25 mg PO QDAY 30 Days Qty: 30 0RF Referrals: [facility] [Outside] - In 1 week Problem List Clinical Impression: Intercostal muscle strain Patient/Caregiver Discharge Instructions Discharge Activity: activity as tolerated Education Materials: Treating?Strains and Sprains, Self-Care for Strains and Sprains Additional Instructions: Please return to the emergency department if you have any worsening or if not improving within the next 48 hours and we will help you. Otherwise you should follow-up with your primary care doctor within the next several days. I have called in a prescription for extra strength Tylenol at your pharmacy. I would take 2 tabs of this medicine every 6 hours for the next 48 hours for pain. Print Language: Khmer Stand Alone Forms: Consuelo Award Info., Patient Portal Info Letter
== END 2024-08-10 23:46 | disposition home or self-care (01) ==
PROVIDERS: Physician Assistant; Emergency Provider Emergency Medicine
DX: S29.011A Strain of muscle and tendon of front wall of thorax, initial encounter (principal); I10 Essential (primary) hypertension; J45.909 Unspecified asthma, uncomplicated; Z87.891 Personal history of nicotine dependence; X58.XXXA Exposure to other specified factors, initial encounter
CPT/HCPCS: 36415; 71046; 80053; 80320; 84484; 85025; 93005; 99283; G0480